=== PATIENT | male | born 1990 | race Two or more races ===

== ENCOUNTER 2024-09-25 07:48 | Emergency (ER) | payer OTHER ==
[~2024-09-25] VITALS: Ht 177.8 cm; Wt 74.3 kg
[2024-09-25 09:27] VITALS: BP 123/72; PULSE 85; RESP 16; TEMP 98.2; O2SAT 96
--- NOTE | 2024-09-25 10:03 | DVH ---
CLINICAL INDICATION: Pain TECHNIQUE: XY L HUMERUS XRAY Comparison: None FINDINGS/IMPRESSION: : There is no evidence of acute fracture or dislocation. Soft tissues are unremarkable.
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
[2024-09-25] MEDS ORDERED: NAP500T PO (10:49)
== END 2024-09-25 11:08 | disposition home or self-care (01) ==
LOC: ER 07:48
DX: M79.622 Pain in left upper arm (principal); Z79.899 Other long term (current) drug therapy
CPT/HCPCS: 73060